=== PATIENT | female | born 2000 | race Caucasian/White ===

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

== ENCOUNTER 2018-03-12 20:10 | Emergency (ER) | payer BC ==
[~2018-03-12] VITALS: Ht 180.3 cm; Wt 131.5 kg
[~2018-03-12 20:10] MED LIST changes: +ADVIL200 MG PO; +CEPHALEXIN250 MG/5 M PO; +HYDROCODONE-AC473 ML PO
== END 2018-03-12 20:57 | disposition home or self-care (01) ==
LOC: ED 20:10
DX: S16.1XXA Strain of muscle, fascia and tendon at neck level, initial encounter (principal); Z88.8 Allergy status to other drugs, medicaments and biological substances; Z79.899 Other long term (current) drug therapy; V49.9XXA Car occupant (driver) (passenger) injured in unspecified traffic accident, initial encounter; Z79.2 Long term (current) use of antibiotics
CPT/HCPCS: 72040; 99283

== ENCOUNTER 2022-01-18 12:35 | Emergency (ER) | payer OTHER ==
[~2022-01-18] VITALS: Ht 180.3 cm; Wt 128.4 kg
[2022-01-18] MEDS ORDERED: CEPHALEXIN500 M1 PO (13:00)
== END 2022-01-18 13:35 | disposition home or self-care (01) ==
LOC: ED 12:35
DX: S50.852A Superficial foreign body of left forearm, initial encounter (principal); Z88.8 Allergy status to other drugs, medicaments and biological substances; Z79.899 Other long term (current) drug therapy; W45.8XXA Other foreign body or object entering through skin, initial encounter; Y99.0 Civilian activity done for income or pay; Z23 Encounter for immunization
CPT/HCPCS: 90471; 90715; 99283-25; A9270

== ENCOUNTER 2023-07-15 05:15 | Emergency (ER) | payer OTHER ==
[~2023-07-15] VITALS: Ht 180.3 cm; Wt 125.0 kg
[~2023-07-15 05:15] MED LIST changes: +CEPHALEXIN500 M1 PO
[2023-07-15] MEDS ORDERED: METRONIDAZOLE500 MG PO (05:31)
[2023-07-15 05:37] LABS: BASOPHILS 1.3 % (0-2); HEMATOCRIT 23.1 % (35.0-50.0); HEMOGLOBIN 6.8 g/dL (12.0-18.0); LYMPHOCYTES 26.9 % (24-44); MCH 17.7 (27-36); MCHC 29.5 g/dl (30-36); MCV 59.9 fl (81-99); MONOCYTES 9.4 % (0-12); NEUTROPHILS 60.4 % (39-80); PLATELET COUNT 352 K/uL (140-440); RBC 3.85 M/ul (4.3-5.7); RDW 18.5 (10.5-15.0)
[2023-07-15 05:47] LABS: INR 0.93 (0.80-1.30)
[2023-07-15 05:52] LABS: ALBUMIN 3.6 g/dL (3.4-5.0); ALBUMIN/GLOBULIN RATIO 1.03 (1.1-2.4); ANION GAP 12.8 (7-21); BILIRUBIN, TOTAL 0.3 ng/dL (0.2-1.0); BUN/CREATININE RATIO 17.24 (6.0-28.6); CALCIUM 8.5 mg/dL (8.5-10.1); CREATININE, SERUM 0.58 mg/dL (0.55-1.02); POTASSIUM 3.8 mmol/L (3.5-5.1); PROTEIN, TOTAL 7.1 g/dL (6.4-8.2)
[2023-07-15 06:18] LABS: ABO A; ANTIBODY SCREEN NEGATIVE; IS CROSSMATCH COMPATIBLE; RH POSITIVE
[2023-07-15] MEDS ORDERED: MEGESTROL ACETA40 MG PO (06:59)
[2023-07-15] MEDS ORDERED: FERROUS SULFAT325 M2 PO (07:03)
[2023-07-15] MEDS ORDERED: VITAMIN C500 M1 PO (07:03)
[2023-07-15 09:36] VITALS: BP 93/58
== END 2023-07-15 09:36 | disposition home or self-care (01) ==
LOC: ED 05:15
PROVIDERS: Family Medicine
DX: D50.0 Iron deficiency anemia secondary to blood loss (chronic) (principal); N92.0 Excessive and frequent menstruation with regular cycle; Z88.1 Allergy status to other antibiotic agents; Z79.899 Other long term (current) drug therapy
CPT/HCPCS: 36415; 36430; 80053; 84703; 85025; 85060; 85610; 86850; 86900; 86901; 86922; 99284-25; P9016